=== PATIENT | male | born 1925 | race Caucasian/White ===

== ENCOUNTER 2016-11-25 09:58 | Emergency (ER) | payer MEDICARE, OTHER ==
--- NOTE | 2016-11-25 10:20 | EDM.PDOC ---
ED HPI HEAD INJURY - General Chief Complaint: Head Injury Stated Complaint: HEAD INJURY Time Seen by Provider: 11/25/16 10:09 Source of Information: Reports: Patient History Limitations: Reports: No limitations - History of Present Illness INITIAL COMMENTS - FREE TEXT/NARRATIVE: History of present illness: [] Patient was walking on the sidewalk and slipped and fell backwards hitting the back of his head on the ice. He had no loss of consciousness and was assisted by bystanders. He complains of localized pain on his scalp where he hit his head and neck pain. He denies any numbness or tingling, visual changes, headache, back, chest or extremity pain. Review of systems: As per history of present illness and below otherwise all systems reviewed and negative. Past medical history: As per history of present illness and as reviewed below otherwise noncontributory. Surgical history: As per history of present illness and as reviewed below otherwise noncontributory. Social history: No reported history of drug or alcohol abuse. Family history: As per history of present illness and as reviewed below otherwise noncontributory. Physical exam: General: Well developed, well nourished in NAD HEENT: Large posterior scalp hematoma with abrasion, no active bleeding, normocephalic, pupils reactive, negative for conjunctival pallor or scleral icterus, mucous membranes moist, throat clear, neck supple, tender posteriorly along the paraspinal muscles no vertebral tenderness or step-offs, trachea midline. No hemotympanum or malocclusion Lungs: Clear to auscultation, breath sounds equal bilaterally, chest nontender. Heart: S1S2, regular, negative for clicks, rubs, or JVD. Abdomen: Soft, nondistended, nontender. Negative for masses or hepatosplenomegaly. Negative for costovertebral tenderness. Pelvis: Stable nontender. Genitourinary: Deferred. Rectal: Deferred. Extremities: Atraumatic, negative for cords or calf pain. Neurovascular unremarkable. Neuro: Awake, alert, oriented. Cranial nerves II through XII unremarkable. Cerebellum unremarkable. Motor and sensory unremarkable throughout. Exam nonfocal. Diagnostics: [] CT head and cervical spine for bleed or fracture Therapeutics: [] Impression: [] Blunt head trauma with scalp hematoma Plan: [] Ice to hematoma, Tylenol for pain, Flexeril for neck spasms, followup with Dr. Degroot next week Definitive disposition and diagnosis as appropriate pending reevaluation and review of above. - Related Data Allergies/ADRs: Allergies Allergy/AdvReac Type Severity Reaction Status Date / Time No Known Allergies Allergy Verified 11/25/16 09:59 Home Meds: Home Meds Aspirin [Hortensia Chewable Aspirin] 81 mg PO DAILY 03/06/14 [History] Lisinopril 20 mg PO DAILY 03/06/14 [History] Lovastatin [Altoprev] 20 mg PO DAILY 03/06/14 [History] Cyclobenzaprine [Flexeril] 10 mg PO BEDTIME PRN #10 tablet 11/25/16 [Rx] Past Medical History HEENT History: Reports: None Cardiovascular History: Reports: High cholesterol, Hypertension, Pacemaker, Stents Other Cardiovascular History: bradycardia Respiratory History: Reports: None Gastrointestinal History: Reports: None Genitourinary History: Reports: None Musculoskeletal History: Reports: None Neurological History: Reports: None Psychiatric History: Reports: None Endocrine/Metabolic History: Reports: None Hematologic History: Reports: None Immunologic History: Reports: None Oncologic (Cancer) History: Reports: None Dermatologic History: Reports: None - Infectious Disease History Infectious Disease History: Reports: None - Past Surgical History Head Surgeries/Procedures: Reports: None Cardiovascular Surgical History: Reports: Aneurysm Social & Family History - Family History Family Medical History: Noncontributory - Tobacco Use Smoking Status *Q: Former Smoker Years of Tobacco use: 50 Used Tobacco, but Quit: Yes Month Tobacco Last Used: 1996 Second Hand Smoke Exposure: No - Caffeine Use Caffeine Use: Reports: Coffee - Alcohol Use Days Per Week of Alcohol Use: 0 - Recreational Drug Use Recreational Drug Use: No ED ROS GENERAL - Review of Systems Review Of Systems: See Below (History of present illness) ED EXAM, HEAD INJURY - Physical Exam Exam: See Below (See history of present illness) Course - Vital Signs Last Recorded V/S: Last Vital Signs Temp 36.6 C 11/25/16 09:59 Pulse 90 11/25/16 09:59 Resp 20 11/25/16 09:59 BP 175/69 H 11/25/16 09:59 Pulse Ox 100 11/25/16 09:59 - Orders/Labs/Meds Orders: Active Orders 24 hr Category Date Time Status Cervical Spine wo Cont [CT] Stat Exams 11/25/16 10:20 Taken Head wo Cont [CT] Stat Exams 11/25/16 10:09 Taken Departure - Departure Time of Disposition: 12:09 Disposition: Home, Self-Care 01 Condition: good Clinical Impression: Blunt head trauma Qualifiers: Encounter type: initial encounter Qualified Code(s): S09.8XXA - Other specified injuries of head, initial encounter Scalp hematoma Qualifiers: Encounter type: initial encounter Qualified Code(s): S00.03XA - Contusion of scalp, initial encounter Cervical muscle strain Qualifiers: Encounter type: initial encounter Qualified Code(s): S16.1XXA - Strain of muscle, fascia and tendon at neck level, initial encounter Forms: ED Department Discharge Additional Instructions: The following information is given to patients seen in the emergency department who are being discharged to home. This information is to outline your options for follow-up care. We provide all patients seen in our emergency department with a follow-up referral. The need for follow-up, as well as the timing and circumstances, are variable depending upon the specifics of your emergency department visit. If you don't have a primary care physician on staff, we will provide you with a referral. We always advise you to contact your personal physician following an emergency department visit to inform them of the circumstance of the visit and for follow-up with them and/or the need for any referrals to a consulting specialist. The emergency department will also refer you to a specialist when appropriate. This referral assures that you have the opportunity for follow-up care with a specialist. All of these measure are taken in an effort to provide you with optimal care, which includes your follow-up. Under all circumstances we always encourage you to contact your private physician who remains a resource for coordinating your care. When calling for follow-up care, please make the office aware that this follow-up is from your recent emergency room visit. If for any reason you are refused follow-up, please contact the [facility] Emergency Department at and asked to speak to the emergency department charge nurse. Tylenol and Flexeril for pain and spasm Followup PMD return here if any symptoms worsen or change - My Orders Last 24 Hours: My Active Orders 11/25/16 10:09 Head wo Cont [CT] Stat 11/25/16 10:20 Cervical Spine wo Cont [CT] Stat - Assessment/Plan Last 24 Hours: My Active Orders 11/25/16 10:09 Head wo Cont [CT] Stat 11/25/16 10:20 Cervical Spine wo Cont [CT] Stat
[2016-11-25 12:38] VITALS: BP 164/80
--- NOTE | 2016-11-25 16:06 | CT ---
EXAM DATE: 11/25/16 PATIENT'S AGE: 89 Patient: QUINN DIAS Facility: [place], [place] Site . Site : 1925 Study: CT Head WO CONT [id number]/8/2017 10:56:02 AM Ordering Physician: Triston Fuentes Final Report: INDICATION: Head injury. Fell on ice and hit back of head. TECHNIQUE: Scanning of the head was performed without IV contrast material. Coronal and sagittal reconstructions were obtained. COMPARISON: None. FINDINGS: A right paramedian occipital scalp hematoma is demonstrated along with an acute a nondepressed vertically-oriented fracture. A small contrecoup inferior right frontal lobe contusion is demonstrated. Mild local mass effect is noted. No other acute intracranial hemorrhage is noted. No calvarial or obvious facial fracture is identified. The visualized paranasal and mastoid sinuses are clear. The ventricles and other subarachnoid spaces are within normal limits for the patient`s age. There is nonspecific decreased attenuation in the cerebral white matter which is most likely due to aging/chronic microvascular ischemic disease. IMPRESSION: 1. Small, acute contrecoup inferior right frontal lobe contusion with mild local mass effect. 2. Right paramedian occipital scalp hematoma and underlying acute nondepressed occipital bone fracture. 3. Nonspecific cerebral white matter disease which is most likely due to aging/ chronic microvascular ischemia. Dictated by Bautista Velarde MD @ Nov 25 2016 11:21AM (Electronic Signature) Report Signed by Proxy and Original Signed Document filed in the Medical Record. [facility]
--- NOTE | 2016-11-25 16:07 | CT ---
EXAM DATE: 11/25/16 PATIENT'S AGE: 89 Patient: QUINN DIAS Facility: [place], [place] Site . Site : 1925 Study: CT Spine Cervical [id number]/8/2017 10:57:26 AM Ordering Physician: Triston Fuentes Final Report: INDICATION: Fell on ice today. Hematoma on back of head. Neck pain. TECHNIQUE: Volumetric helical scanning of the cervical spine was performed without contrast material. Sagittal and coronal reconstructions were also obtained. COMPARISON: None. FINDINGS: No fracture, traumatic subluxation or prevertebral soft tissue swelling is demonstrated. Multilevel spondylosis is demonstrated. Degenerative 2 mm C3 and C6 anterior subluxations are noted. IMPRESSION: 1. Negative for acute traumatic abnormality. 2. Multilevel spondylosis. Dictated by Bautista Velarde MD @ Nov 25 2016 11:22AM (Electronic Signature) Report Signed by Proxy and Original Signed Document filed in the Medical Record. [facility]
== END 2016-11-25 12:33 | disposition home or self-care (01) ==
LOC: MW.ED 09:58
DX: S16.1XXA Strain of muscle, fascia and tendon at neck level, initial encounter (principal); S09.8XXA Other specified injuries of head, initial encounter; S00.03XA Contusion of scalp, initial encounter; W00.0XXA Fall on same level due to ice and snow, initial encounter; Y92.480 Sidewalk as the place of occurrence of the external cause; I10 Essential (primary) hypertension; E78.00 Pure hypercholesterolemia, unspecified; Z95.0 Presence of cardiac pacemaker; Z95.5 Presence of coronary angioplasty implant and graft; Z79.82 Long term (current) use of aspirin; Z79.899 Other long term (current) drug therapy; Z87.891 Personal history of nicotine dependence
CPT/HCPCS: 70450; 70450-26; 72125; 72125-26; 99283; 99283-25

== ENCOUNTER 2016-11-30 13:30 | Emergency (ER) | payer MEDICARE, OTHER ==
--- NOTE | 2016-11-30 13:57 | EDM.PDOC ---
ED HPI HEAD INJURY - General Chief Complaint: Head Injury Stated Complaint: UNK Time Seen by Provider: 11/30/16 13:31 Source of Information: Reports: Patient History Limitations: Reports: No limitations - History of Present Illness INITIAL COMMENTS - FREE TEXT/NARRATIVE: History of present illness: [] Patient slipped on the ice on November 25. His initial CT was read as a scalp hematoma and no fracture or bleed was noted by [facility]. The report has since been updated in the frontal bleed and occipital fracture. Patient went to the clinic for followup today for recheck and a repeat CT was done. CT today showed a new hypodensity is convex consistent with a hygroma causing a 5 mm right to left shift. Patient went home from radiology this morning and was called back to return to the ED her reevaluation. On arrival patient had a blood pressure of 123/67 pulse is 60 O2 sat of 95% awake and alert denying any headache, change in vision, numbness or tingling, nausea or vomiting. I consulted Dr. Olson from neurosurgery at [facility] and he stated that he would not likely operate on this gentleman that he should have a repeat CT scan in one week. Review of systems: As per history of present illness and below otherwise all systems reviewed and negative. Past medical history: As per history of present illness and as reviewed below otherwise noncontributory. Surgical history: As per history of present illness and as reviewed below otherwise noncontributory. Social history: No reported history of drug or alcohol abuse. Family history: As per history of present illness and as reviewed below otherwise noncontributory. Physical exam: General: Well developed, well nourished in NAD HEENT: Atraumatic, normocephalic, pupils reactive, negative for conjunctival pallor or scleral icterus, mucous membranes moist, throat clear, neck supple, nontender, trachea midline. Lungs: Clear to auscultation, breath sounds equal bilaterally, chest nontender. Heart: S1S2, regular, negative for clicks, rubs, or JVD. Abdomen: Soft, nondistended, nontender. Negative for masses or hepatosplenomegaly. Negative for costovertebral tenderness. Pelvis: Stable nontender. Genitourinary: Deferred. Rectal: Deferred. Extremities: Atraumatic, negative for cords or calf pain. Neurovascular unremarkable. Neuro: Awake, alert, oriented. Cranial nerves II through XII unremarkable. Cerebellum unremarkable. Motor and sensory unremarkable throughout. Exam nonfocal. 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 Plan: [] Repeat CT scan head in one week Definitive disposition and diagnosis as appropriate pending reevaluation and review of above. - Related Data Allergies/ADRs: Allergies Allergy/AdvReac Type Severity Reaction Status Date / Time Sulfa (Sulfonamide Allergy Rash Verified 11/30/16 13:34 Antibiotics) Home Meds: Home Meds Aspirin [Hortensia Chewable Aspirin] 81 mg PO DAILY 03/06/14 [History] Lisinopril 20 mg PO DAILY 03/06/14 [History] Lovastatin [Altoprev] 20 mg PO DAILY 03/06/14 [History] Past Medical History HEENT History: Reports: None Cardiovascular History: Reports: High cholesterol, Hypertension, Pacemaker, Stents Other Cardiovascular History: bradycardia Respiratory History: Reports: None Gastrointestinal History: Reports: None Genitourinary History: Reports: None Musculoskeletal History: Reports: None Neurological History: Reports: None Psychiatric History: Reports: None Endocrine/Metabolic History: Reports: None Hematologic History: Reports: None Immunologic History: Reports: None Oncologic (Cancer) History: Reports: None Dermatologic History: Reports: None - Infectious Disease History Infectious Disease History: Reports: None - Past Surgical History Head Surgeries/Procedures: Reports: None Cardiovascular Surgical History: Reports: Aneurysm Social & Family History - Family History Family Medical History: Noncontributory - Tobacco Use Smoking Status *Q: Former Smoker Years of Tobacco use: 50 Used Tobacco, but Quit: Yes Month Tobacco Last Used: 1996 Second Hand Smoke Exposure: No - Caffeine Use Caffeine Use: Reports: Coffee Caffeine Use Comment: 1 drink.day - Alcohol Use Days Per Week of Alcohol Use: 0 - Recreational Drug Use Recreational Drug Use: No ED ROS GENERAL - Review of Systems Review Of Systems: See Below (See history of present illness) ED EXAM, HEAD INJURY - Physical Exam Exam: See Below (See history of present illness) Course - Vital Signs Last Recorded V/S: Last Vital Signs Temp 37.4 C 11/30/16 13:39 Pulse 68 11/30/16 13:39 Resp 16 11/30/16 13:39 BP 123/67 11/30/16 13:39 Pulse Ox 97 11/30/16 13:39 - Orders/Labs/Meds Orders: Active Orders 24 hr Category Date Time Status RT Aerosol Therapy [RC] ASDIRECTED Care 11/30/16 14:10 Active Meds: Medications Discontinued Medications Generic Name Dose Route Start Last Admin Trade Name Julia PRN Reason Stop Dose Admin Albuterol/Ipratropium 3 ml 11/30/16 14:09 Duoneb 3.0-0.5 Mg/3 Ml NEB 11/30/16 14:10 ONETIME ONE Departure - Departure Time of Disposition: 14:14 Disposition: Home, Self-Care 01 Condition: good Clinical Impression: Frontal lobe contusion Qualifiers: Encounter type: sequela Laterality: right Loss of consciousness presence/ duration: with LOC of 30 min or less Qualified Code(s): S06.311S - Contusion and laceration of right cerebrum with loss of consciousness of 30 minutes or less, sequela Traumatic subdural hygroma Qualifiers: Encounter type: sequela Loss of consciousness presence/duration: with LOC of 30 min or less Qualified Code(s): S06.5X1S - Traumatic subdural hemorrhage with loss of consciousness of 30 minutes or less, sequela Forms: ED Department Discharge Additional Instructions: The following information is given to patients seen in the emergency department who are being discharged to home. This information is to outline your options for follow-up care. We provide all patients seen in our emergency department with a follow-up referral. The need for follow-up, as well as the timing and circumstances, are variable depending upon the specifics of your emergency department visit. If you don't have a primary care physician on staff, we will provide you with a referral. We always advise you to contact your personal physician following an emergency department visit to inform them of the circumstance of the visit and for follow-up with them and/or the need for any referrals to a consulting specialist. The emergency department will also refer you to a specialist when appropriate. This referral assures that you have the opportunity for follow-up care with a specialist. All of these measure are taken in an effort to provide you with optimal care, which includes your follow-up. Under all circumstances we always encourage you to contact your private physician who remains a resource for coordinating your care. When calling for follow-up care, please make the office aware that this follow-up is from your recent emergency room visit. If for any reason you are refused follow-up, please contact the [facility] Emergency Department at and asked to speak to the emergency department charge nurse. Repeat CT scan in one week [facility] [address] [place] [id number] - My Orders Last 24 Hours: My Active Orders 11/30/16 14:10 RT Aerosol Therapy [RC] ASDIRECTED - Assessment/Plan Last 24 Hours: My Active Orders 11/30/16 14:10 RT Aerosol Therapy [RC] ASDIRECTED
[2016-11-30] MEDS ORDERED: Albuterol/Ipratropium 3.0-0.5 MG/3 ML Neb Soln NEB ONE (14:09)
[2016-11-30 14:43] VITALS: BP 135/67
== END 2016-11-30 14:45 | disposition home or self-care (01) ==
LOC: MW.ED 13:30
DX: S06.5X1S Traumatic subdural hemorrhage with loss of consciousness of 30 minutes or less, sequela (principal); E78.00 Pure hypercholesterolemia, unspecified; I10 Essential (primary) hypertension; Z88.2 Allergy status to sulfonamides; Z79.82 Long term (current) use of aspirin; Z79.899 Other long term (current) drug therapy; Z87.891 Personal history of nicotine dependence; W00.0XXS Fall on same level due to ice and snow, sequela; R51 Headache; H91.90 Unspecified hearing loss, unspecified ear; J34.89 Other specified disorders of nose and nasal sinuses; H53.8 Other visual disturbances; H73.899 Other specified disorders of tympanic membrane, unspecified ear; S00.83XD Contusion of other part of head, subsequent encounter; S02.119D Unspecified fracture of occiput, subsequent encounter for fracture with routine healing
CPT/HCPCS: 70450; 70450-26; 94664; 99282; 99284

== ENCOUNTER → 2016-11-30 | Outpatient (CLI) | payer MEDICARE, OTHER ==
--- NOTE | 2016-12-02 15:22 | CT ---
EXAM DATE: 11/30/16 PATIENT'S AGE: 89 Patient: QUINN DIAS Facility: [facility], [place], [place] Site . Site : 1925 Study: CT Head STROKE PROTOCOL [id number]/13/2017 11:32:13 AM Ordering Physician: Soumya Oliver Final Report: HISTORY: Fall on 25 November 2016. Headache, loss of hearing. TECHNIQUE: Head was scanned in axial plane at 3 mm intervals without IV contrast. Reconstructed bone windows were obtained as well as sagittal and coronal reconstructions. COMPARISON: 25 November 2016. FINDINGS: Mucosal thickening seen in the right maxillary sinus. Remainder of the visualized paranasal sinuses and mastoid air cells are well aerated. There is a nondisplaced linear skull fracture seen just right of midline right occipital bone with an adjacent soft tissue scalp hematoma. There is increased size of contrecoup right frontal lobe contusion and hematoma. This measures 5.1 cm in AP diameter, 2.3 cm in length 2.8 cm in height. There is some edema around the parenchymal hematoma. This has mass effect on the antrum of the right lateral ventricle. There is a 5 mm midline shift right to left. There has been interval development of a 7 mm low-density crescenteric fluid collection along the right cerebral convexity. IMPRESSION: 1. Increase in size of right frontal parenchymal contusion with surrounding edema. 2. There is a new crescent of CSF density seen along the right cerebral convexity most consistent with a hygroma. 3. There is a 5 mm midline shift right to left. 4. The right occipital linear skull fracture with adjacent subgaleal soft tissue hematoma. Report called to Dr Goldstein Dec 04 @ 1200 hours. Dictated by Latricia Muhammad MD @ 11/30/2016 11:56:30 AM Dictated by: Latricia Muhammad MD @ 11/30/2016 12:03:21 (Electronic Signature) Report Signed by Proxy and Original Signed Document filed in the Medical Record. [facility]
== END ==
LOC: MW.CT 10:55
PROVIDERS: ATTEND Nurse Practitioner Adult Health
DX: R51 Headache (principal); H91.90 Unspecified hearing loss, unspecified ear; J34.89 Other specified disorders of nose and nasal sinuses; H53.8 Other visual disturbances; H73.899 Other specified disorders of tympanic membrane, unspecified ear; S00.83XD Contusion of other part of head, subsequent encounter; S02.119D Unspecified fracture of occiput, subsequent encounter for fracture with routine healing
CPT/HCPCS: 70450; 70450-26

== ENCOUNTER → 2016-12-07 | Outpatient (CLI) | payer MEDICARE, OTHER ==
--- NOTE | 2016-12-07 13:56 | CT ---
EXAMINATION: Non contrast CT head. Coronal and sagittal reformats. HISTORY: Follow-up brain trauma FINDINGS: There is a grossly stable right frontal lobe subarachnoid to intraparenchymal hematoma. There is adj acent white matter edema. There is a stable prominence of the right extra-axial spaces. There is als o stable right to left midline shift and mass effect on the right lateral ventricle. Otherwise there is generalized atrophy noted. Mild vascular calcifications are present. There is a stable right occ ipital nondisplaced skull fracture. The paranasal sinuses and mastoid air cells are clear. The orbit s and globes are symmetric. IMPRESSION: 1. Grossly stable right frontal lobe hematoma with adjacent edema. 2. Stable mild right to left midline shift. 3. Stable prominence of the right extra-axial space.
== END | disposition home or self-care (01) ==
LOC: MW.DI 09:34
PROVIDERS: ATTEND Emergency Medicine
DX: S09.90XA Unspecified injury of head, initial encounter (principal); S06.2X0A Diffuse traumatic brain injury without loss of consciousness, initial encounter; R51 Headache; H74.8X1 Other specified disorders of right middle ear and mastoid; Z88.2 Allergy status to sulfonamides
CPT/HCPCS: 70450; 70450-26

== ENCOUNTER → 2016-12-28 | Outpatient (CLI) | payer MEDICARE, OTHER | END | disposition home or self-care (01) | LOC: MW.LAB 08:41 | PROVIDERS: ATTEND Internal Medicine Interventional Cardiology | DX: I25.119 Atherosclerotic heart disease of native coronary artery with unspecified angina pectoris (principal) | CPT/HCPCS: 36415; 80061 ==

== ENCOUNTER → 2016-12-29 | Outpatient (CLI) | payer MEDICARE, OTHER ==
--- NOTE | 2016-12-29 10:57 | CT ---
EXAMINATION: Non contrast CT head. Coronal and sagittal reformats. COMPARISON: 12/07/2016. HISTORY: Follow-up FINDINGS: The previously demonstrated hemorrhage within the right frontal lobe has mostly resolved. There is p ersistent hypodense components within the underlying white matter, likely evolving encephalomalacia. The prominence of the extra-axial spaces within the right cerebral convexity are also decreasing. H owever there is a faint hyperdense component noted overlying the posterior aspect of the right front al lobe. There is generalized atrophy noted with mild symmetric prominence of the ventricles. Minima l residual midline shift. No hypoattenuation changes in the major vascular territories to suggest an acute infarct. No abnorm al intracranial calcifications are detected. Mild vascular calcifications noted. Paranasal sinuses a nd mastoid air cells are well aerated without substantial findings. Pituitary fossa appears unremarkable. Calvarium is intact. No evidence of skull fracture. IMPRESSION: 1. No significant residual parenchymal hemorrhage noted within the right frontal lobe. Underlying hy podensities likely representing evolving encephalomalacia. 2. 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 This is best noted on the coronal imaging however the overall prominence of the right extra-axial spaces appears decreased.
== END | disposition home or self-care (01) ==
LOC: MW.DI 09:38
PROVIDERS: ATTEND Family Medicine
DX: H91.92 Unspecified hearing loss, left ear (principal); R51 Headache
CPT/HCPCS: 70450; 70450-26